=== PATIENT | male | born 1960 | race African-American/Black ===

== ENCOUNTER 2017-12-28 11:15 | Inpatient (IN) | payer OTHER ==
[2017-12-28 12:04] VITALS: BMI 50.5
--- NOTE | 2017-12-28 13:04 | HP ---
CIWA Score - CIWA Score Nausea/Vomitin-Mild Nausea/No Vomiting Muscle Tremors: 4-Moderate,w/Arms Extend Anxiety: 4-Mod. Anxious/Guarded Agitation: 1-Slight > Activity Paroxysmal Sweats: 1-Minimal Palms Moist Orientation: 0-Oriented Tacttile Disturbances: 0-None Auditory Disturbances: 0-None Visual Disturbances: 1-Very Mild Sensitivity Headache: 2-Mild CIWA-Ar Total Score: 14 Admission ROS BHS - HPI Chief Complaint: I'm tired, I don't want to use anymore, I need to get back on track Allergies/Adverse Reactions: Allergies Allergy/AdvReac Type Severity Reaction Status Date / Time No Known Allergies Allergy Verified 08/23/15 15:44 History of Present Illness: 57 yo gentleman here for detox from alcohol - last time here 2014 - sober x 3 years then relapsed. No seizures but does have black outs. Exam Limitations: No Limitations - Ebola screening Have you traveled outside of the country in the last 21 days: No (N) Have you had contact with anyone from an Ebola affected area: No Have you been sick,other than usual withdrawal symptoms: No Do you have a fever: No - Review of Systems Constitutional: Loss of Appetite, Night Sweats, Changes in sleep EENT: reports: No Symptoms Reported Respiratory: reports: No Symptoms reported Cardiac: reports: No Symptoms Reported GI: reports: Poor Appetite, Indigestion, Abdominal cramping : reports: Frequency Musculoskeletal: reports: Back Pain, Muscle Pain Integumentary: reports: No Symptoms Reported Neuro: reports: Tremors Endocrine: reports: No Symptoms Reported Hematology: reports: No Symptoms Reported Psychiatric: reports: Judgement Intact, Mood/Affect Appropiate, Orientated x3, Anxious Other Systems: Reviewed and Negative Patient History - Patient Medical History Hx Anemia: No Hx Asthma: No Hx Chronic Obstructive Pulmonary Disease (COPD): No Hx Cancer: No Hx Cardiac Disorders: No Hx Congestive Heart Failure: No Hx Hypertension: No Hx Hypercholesterolemia: No Hx Pacemaker: No HX Cerebrovascular Accident: No Hx Seizures: No Hx Dementia: No Hx Diabetes: No Hx Gastrointestinal Disorders: No Hx Liver Disease: No Hx Genitourinary Disorders: No Hx Sexually Transmitted Disorders: No Hx Renal Disease (ESRD): No Hx Thyroid Disease: No Hx Human Immunodeficiency Virus (HIV): No Hx Hepatitis C: No Hx Depression: No Hx Suicide Attempt: No Hx Bipolar Disorder: No Hx Schizophrenia: No Other Medical History: arthritis of knees; obesity - Patient Surgical History Past Surgical History: No Hx Neurologic Surgery: No Hx Cataract Extraction: No Hx Cardiac Surgery: No Hx Lung Surgery: No Hx Breast Surgery: No Hx Breast Biopsy: No Hx Abdominal Surgery: No Hx Appendectomy: No Hx Cholecystectomy: No Hx Genitourinary Surgery: No Hx Section: No Hx Orthopedic Surgery: Yes (right knee - arthroscopy march 2017) Anesthesia Reaction: No - PPD History Previous Implant?: Yes Documented Results: Negative w/proof Date: 09/12/17 (done at [facility] - patient brought in proof) Results: 0 mm PPD to be Administered?: No - Reproductive History Patient is a Female of Child Bearing Age (11 -55 yrs old): No (male) - Smoking Cessation Smoking history: Current some day smoker Have you smoked in the past 12 months: Yes Aproximately how many cigarettes per day: 20 Hx Chewing Tobacco Use: No Initiated information on smoking cessation: Yes 'Breaking Loose' booklet given: 12/28/17 (give on floor) - Substance & Tx. History Hx Alcohol Use: Yes Hx Substance Use: Yes Substance Use Type: Alcohol, Cocaine Hx Substance Use Treatment: Yes (detox) - Substances Abused alcohol Route: Oral Frequency: Daily Amount used: 1/5 vodka daily Age of first use: 10 Date of Last Use: 12/28/17 Crack Route: Smoking Frequency: Daily Amount used: 1 gram Age of first use: 24 Date of Last Use: 12/24/17 Family Disease History - Family Disease History Family Disease History: Heart Disease: Grandparent (, etoh), Other: Grandparent, Father (, ? reason), Mother (living, healthy), Daughter ( two - living - healthy) Admission Physical Exam BHS - Vital Signs Vital Signs: Vital Signs - 24 hr 12/28/17 11:50 Temperature 97.2 F L Pulse Rate 96 H Respiratory 20 Rate Blood Pressure 129/77 - Physical General Appearance: Yes: Nourished, Appropriately Dressed, Moderate Distress, Obese, Tremorous, Anxious HEENTM: Yes: EOMI, Hearing grossly Normal, Normocephalic, Normal Voice, Pharynx Normal Respiratory: Yes: Normal Breath Sounds, No Respiratory Distress Neck: Yes: No masses,lesions,Nodules, Supple Breast: Yes: Breast Exam Deferred Cardiology: Yes: Regular Rhythm, Regular Rate Abdominal: Yes: Soft, Protuberent Genitourinary: Yes: Frequency Back: Yes: Normal Inspection Musculoskeletal: Yes: full range of Motion, Gait Steady, Back pain, Muscle Pain Extremities: Yes: Normal Inspection, Non-Tender Neurological: Yes: Fully Oriented, Alert, Motor Strength 5/5, Normal Mood/Affect , Normal Response Integumentary: Yes: Normal Color, Dry, Warm Lymphatic: Yes: Within Normal Limits - Diagnostic (1) Alcohol dependence with withdrawal Current Visit: Yes Status: Chronic Qualifiers: Complication of substance-induced condition: uncomplicated Qualified Code(s ): F10.230 - Alcohol dependence with withdrawal, uncomplicated (2) Cocaine dependence Current Visit: Yes Status: Chronic (3) Nicotine dependence Current Visit: Yes Status: Acute Qualifiers: Nicotine product type: cigarettes Substance use status: uncomplicated Qualified Code(s): F17.210 - Nicotine dependence, cigarettes, uncomplicated (4) Syncope, non cardiac Current Visit: Yes Status: Acute (5) Osteoarthritis of both knees Current Visit: Yes Status: Chronic Qualifiers: Osteoarthritis type: primary Qualified Code(s): M17.0 - Bilateral primary osteoarthritis of knee (6) Obesity, morbid, BMI 50 or higher Current Visit: Yes Status: Chronic Cleared for Admission [facility] - Detox or Rehab [facility] Level of Care: Medically Managed Detox Regimen/Protocol: Librium [facility] Breath Alcohol Content Breath Alcohol Content: 0.077 Urine Drug Screen - Results Drug Screen Negative: No Urine Drug Screen Results: STEVIE-Cocaine
[2017-12-28] MEDS ORDERED: ACETAMINOPHEN 325 MG TABLET (FP) PO PRN (13:16)
[2017-12-28] MEDS ORDERED: MAGNESIUM HYDROX 2400MG/30ML ORAL SUSPENSION 30 ML CUP PO PRN (13:16)
[2017-12-28] MEDS ORDERED: MAGNESIUM CITRATE 300 ML BOTTLE PO PRN (13:16)
[2017-12-28] MEDS ORDERED: P-EPHED 60MG/TRIPROLIDI 2.5MG TABLET PO PRN (13:16)
[2017-12-28] MEDS ORDERED: chlordiazePOXIDE HCL 25 MG CAPSULE PO PRN (13:16)
[2017-12-28] MEDS ORDERED: hydrOXYzine PAMOATE 25 MG CAPSULE (FP) PO PRN (13:16)
[2017-12-28] MEDS ORDERED: guaiFENesin/D-METHORPHAN HB 10 ML UNIT-DOSE CUPS PO PRN (13:16)
[2017-12-28] MEDS ORDERED: MAG HYDROX/AL HYDROX/SIMETH 30 ML UNIT-DOSE CUP PO PRN (13:16)
[2017-12-28] MEDS ORDERED: LOPERAMIDE HCL 2 MG CAPSULE PO PRN (13:16)
[2017-12-28] MEDS ORDERED: MENTHOL/PHENOL 1 EACH UD MM PRN (13:16)
[2017-12-28] MEDS ORDERED: chlordiazePOXIDE HCL 25 MG CAPSULE PO ONE (14:45)
[2017-12-28] MEDS: IBUPROFEN 600 MG TABLET (FP) PO PRN (15:57)
[2017-12-28] MEDS: chlordiazePOXIDE HCL 25 MG CAPSULE PO SCH ×2 (17:39→22:19)
[2017-12-28 18:25] LABS: URINE APPEARANCE TURBID; URINE BILIRUBIN NEGATIVE (NEGATIVE); URINE BLOOD NEGATIVE (NEGATIVE); URINE COLOR YELLOW; URINE GLUCOSE (UA) NEGATIVE (NEGATIVE); URINE KETONE NEGATIVE (NEGATIVE); URINE NITRITE NEGATIVE (NEGATIVE); URINE UROBILINOGEN 4.0 E.U/dl mg/dL (0.2-1.0)
[2017-12-28 18:34] LABS: URINE LEUK ESTERASE 1+ (NEGATIVE); URINE PROTEIN 1+ (NEGATIVE)
[2017-12-28 18:37] LABS: URINE BACTERIA MANY /hpf (NONE SEEN); URINE MUCUS RARE
[2017-12-28 18:39] LABS: AMORP URATES MANY /hpf (NONE SEEN)
[2017-12-28] MEDS: METHYL SALICYLATE/MENTHOL OINT 30 GM TUBE TP SCH (22:20)
[2017-12-28] MEDS: THIAMINE HCL 100 MG TABLET (FP) PO SCH (22:22)
[2017-12-29] MEDS: chlordiazePOXIDE HCL 25 MG CAPSULE PO SCH ×4 (05:09→23:22)
--- NOTE | 2017-12-29 08:39 | EKG ---
Test Reason : Blood Pressure : / mmHG Vent. Rate : 086 BPM Atrial Rate : 086 BPM P-R Int : 162 ms QRS Dur : 088 ms QT Int : 404 ms P-R-T Axes : 051 003 059 degrees QTc Int : 483 ms NORMAL SINUS RHYTHM INFERIOR INFARCT , AGE UNDETERMINED CANNOT RULE OUT ANTERIOR INFARCT , AGE UNDETERMINED ABNORMAL ECG NO PREVIOUS ECGS AVAILABLE Confirmed by NIK ANN MD ([id number]) on 12/29/2017 8:38:57 AM Referred By: Confirmed By:NIK ANN MD
--- NOTE | 2017-12-29 09:59 | PN ---
S CIWA - CIWA Score Nausea/Vomitin-Mild Nausea/No Vomiting Muscle Tremors: 4-Moderate,w/Arms Extend Anxiety: 3 Agitation: 3 Paroxysmal Sweats: 1-Minimal Palms Moist Orientation: 0-Oriented Tacttile Disturbances: 0-None Auditory Disturbances: 0-None Visual Disturbances: 0-None Headache: 0-None Present CIWA-Ar Total Score: 12 BHS Progress Note (SOAP) Subjective: sweat tremor anxiety mild nausea able to tolerate food and fluid Objective: 12/29/17 09:56 Vital Signs Temperature 97.9 F 12/29/17 06:00 Pulse Rate 80 12/29/17 06:00 Respiratory Rate 20 12/29/17 06:00 Blood Pressure 133/80 12/29/17 06:00 O2 Sat by Pulse Oximetry (%) Laboratory Last Values Urine Color Yellow 12/28/17 15:31 Urine Appearance Turbid 12/28/17 15:31 Urine pH 5.0 (5.0-8.0) 12/28/17 15:31 Ur Specific [place] 1.028 (1.001-1.035) 12/28/17 15:31 Urine Protein 1+ (NEGATIVE) H 12/28/17 15:31 Urine Glucose (UA) Negative (NEGATIVE) 12/28/17 15:31 Urine Ketones Negative (NEGATIVE) 12/28/17 15:31 Urine Blood Negative (NEGATIVE) 12/28/17 15:31 Urine Nitrite Negative (NEGATIVE) 12/28/17 15:31 Urine Bilirubin Negative (NEGATIVE) 12/28/17 15:31 Urine Urobilinogen 4.0 e.u/dl mg/dL (0.2-1.0) 12/28/17 15:31 Ur Leukocyte Esterase 1+ (NEGATIVE) H 12/28/17 15:31 Urine WBC (Auto) 52 /hpf (3-5) 12/28/17 15:31 Urine RBC (Auto) None /hpf (0-3) 12/28/17 15:31 Amorphous Urates Many /hpf (NONE SEEN) 12/28/17 15:31 Urine Bacteria Many /hpf (NONE SEEN) 12/28/17 15:31 Urine Mucus Rare 12/28/17 15:31 lab noted repeat ua Assessment: 12/29/17 09:59 withdrawal sx Plan: continue detox increase oral fluid
[2017-12-29 10:12] LABS: HEMATOCRIT 43.2 % (35.4-49); MCH 30.9 pg (25.7-33.7); MCHC 32.4 g/dl (32.0-35.9); MEAN CELL VOLUME 95.3 fl (80-96); PLATELET COUNT 231 K/MM3 (134-434); RBC 4.54 M/mm3 (4.00-5.60); RDW 15.1 % (11.9-15.9); WHITE BLOOD COUNT 9.4 K/mm3 (4.0-10.0)
[2017-12-29] MEDS: PRENATAL VITAMINS W/ FOLIC ACID TABLET (FP) PO SCH (10:21)
[2017-12-29] MEDS: METHYL SALICYLATE/MENTHOL OINT 30 GM TUBE TP SCH ×2 (10:22→23:21)
[2017-12-29] MEDS: IBUPROFEN 600 MG TABLET (FP) PO PRN ×2 (10:23→22:03)
[2017-12-29 10:27] LABS: CHLORIDE 108 mmol/L (98-107); POTASSIUM 3.9 mmol/L (3.5-5.1); SODIUM 141 mmol/L (136-145)
[2017-12-29 10:37] LABS: ALBUMIN 3.2 g/dl (3.4-5.0); ALK PHOS 122 U/L (45-117); ANION GAP 6 (8-16); BILIRUBIN,TOTAL 0.6 mg/dL (0.2-1.0); BLOOD UREA NITROGEN 12 mg/dL (7-18); CALCIUM 8.1 mg/dL (8.5-10.1); CO2 27 mmol/L (21-32); GLUCOSE,RANDOM 99 mg/dL (74-106); SGOT/AST 11 U/L (15-37); SGPT/ALT 21 U/L (12-78); TOT PROT 6.9 g/dl (6.4-8.2)
[2017-12-29] MEDS: THIAMINE HCL 100 MG TABLET (FP) PO SCH (23:22)
[2017-12-30] MEDS: chlordiazePOXIDE HCL 25 MG CAPSULE PO SCH ×2 (05:40→10:07)
[2017-12-30] MEDS: PRENATAL VITAMINS W/ FOLIC ACID TABLET (FP) PO SCH (10:06)
[2017-12-30] MEDS: METHYL SALICYLATE/MENTHOL OINT 30 GM TUBE TP SCH ×2 (10:06→22:08)
[2017-12-30] MEDS: IBUPROFEN 600 MG TABLET (FP) PO PRN (10:08)
[2017-12-30 10:10] LABS: URINE APPEARANCE CLEAR; URINE BILIRUBIN NEGATIVE (NEGATIVE); URINE BLOOD NEGATIVE (NEGATIVE); URINE COLOR LTYELLOW; URINE GLUCOSE (UA) NEGATIVE (NEGATIVE); URINE KETONE NEGATIVE (NEGATIVE); URINE LEUK ESTERASE TRACE (NEGATIVE); URINE NITRITE NEGATIVE (NEGATIVE); URINE PROTEIN NEGATIVE (NEGATIVE)
--- NOTE | 2017-12-30 10:12 | PN ---
S CIWA - CIWA Score Nausea/Vomitin Muscle Tremors: 3 Anxiety: 3 Agitation: 2 Paroxysmal Sweats: 1-Minimal Palms Moist Orientation: 0-Oriented Tacttile Disturbances: 1-Very Mild Itch/Numbness Auditory Disturbances: 1-Very Mild Visual Disturbances: 0-None Headache: 2-Mild CIWA-Ar Total Score: 16 BHS Progress Note (SOAP) Subjective: ALERT,IRRITABLE,ANXIOUS,INTERRUPTED SLEEP,TREMOR,CONTACT DERMATITIS FACE Objective: 12/30/17 10:08 Vital Signs Temperature 97.7 F 12/30/17 06:12 Pulse Rate 76 12/30/17 06:12 Respiratory Rate 18 12/30/17 06:12 Blood Pressure 124/79 12/30/17 06:12 O2 Sat by Pulse Oximetry (%) EKG NSR NO CHEST PAIN,NO SOB,NO DIZZINESS Laboratory Last Values WBC 9.4 K/mm3 (4.0-10.0) 12/29/17 08:00 RBC 4.54 M/mm3 (4.00-5.60) 12/29/17 08:00 Hgb 14.0 GM/dL (11.7-16.9) 12/29/17 08:00 Hct 43.2 % (35.4-49) 12/29/17 08:00 MCV 95.3 fl (80-96) 12/29/17 08:00 MCH 30.9 pg (25.7-33.7) 12/29/17 08:00 MCHC 32.4 g/dl (32.0-35.9) 12/29/17 08:00 RDW 15.1 % (11.9-15.9) 12/29/17 08:00 Plt Count 231 K/MM3 (134-434) 12/29/17 08:00 MPV 9.0 fl (7.5-11.1) 12/29/17 08:00 Sodium 141 mmol/L (136-145) 12/29/17 08:00 Potassium 3.9 mmol/L (3.5-5.1) 12/29/17 08:00 Chloride 108 mmol/L (98-107) H 12/29/17 08:00 Carbon Dioxide 27 mmol/L (21-32) 12/29/17 08:00 Anion Gap 6 (8-16) L 12/29/17 08:00 BUN 12 mg/dL (7-18) D 12/29/17 08:00 Creatinine 1.0 mg/dL (0.7-1.3) 12/29/17 08:00 Creat Clearance w eGFR > 60 (>60) 12/29/17 08:00 Random Glucose 99 mg/dL (74-106) 12/29/17 08:00 Calcium 8.1 mg/dL (8.5-10.1) L 12/29/17 08:00 Total Bilirubin 0.6 mg/dL (0.2-1.0) D 12/29/17 08:00 AST 11 U/L (15-37) L D 12/29/17 08:00 ALT 21 U/L (12-78) D 12/29/17 08:00 Alkaline Phosphatase 122 U/L (45-117) H 12/29/17 08:00 Total Protein 6.9 g/dl (6.4-8.2) 12/29/17 08:00 Albumin 3.2 g/dl (3.4-5.0) L 12/29/17 08:00 Urine Color Yellow 12/28/17 15:31 Urine Appearance Turbid 12/28/17 15: Urine pH 5.0 (5.0-8.0) 12/28/17 15:31 Ur Specific [place] 1.028 (1.001-1.035) 12/28/17 15:31 Urine Protein 1+ (NEGATIVE) H 12/28/17 15:31 Urine Glucose (UA) Negative (NEGATIVE) 12/28/17 15:31 Urine Ketones Negative (NEGATIVE) 12/28/17 15: Urine Blood Negative (NEGATIVE) 12/28/17 15: Urine Nitrite Negative (NEGATIVE) 12/28/17 15:31 Urine Bilirubin Negative (NEGATIVE) 12/28/17 15: Urine Urobilinogen 4.0 e.u/dl mg/dL (0.2-1.0) 12/28/17 15:31 Ur Leukocyte Esterase 1+ (NEGATIVE) H 12/28/17 15:31 Urine WBC (Auto) 52 /hpf (3-5) 12/28/17 15:31 Urine RBC (Auto) None /hpf (0-3) 12/28/17 15:31 Amorphous Urates Many /hpf (NONE SEEN) 12/28/17 15:31 Urine Bacteria Many /hpf (NONE SEEN) 12/28/17 15:31 Urine Mucus Rare 12/28/17 15:31 RPR Titer Nonreactive (NONREACTIVE) 12/29/17 08:00 Assessment: 12/30/17 10:10 WITHDRAWAL SYMPTOM Plan: CONTINUE DETOX ,REPEAT UA PENDING,ENCOURAGE ORAL FLUID
[2017-12-30 10:16] LABS: URINE MUCUS RARE
[2017-12-30] MEDS: HYDROCORTISONE 0.5% TOPICAL CREAM 30 GM TUBE TP SCH ×2 (11:22→22:06)
[2017-12-30] MEDS: chlordiazePOXIDE 5 MG CAPSULE PO SCH ×2 (17:48→22:07)
[2017-12-30] MEDS: THIAMINE HCL 100 MG TABLET (FP) PO SCH (22:08)
[2017-12-31] MEDS: chlordiazePOXIDE 5 MG CAPSULE PO SCH ×2 (06:27→10:22)
--- NOTE | 2017-12-31 09:10 | PN ---
BHS Progress Note (SOAP) Subjective: alert,irritable,anxious,interrupted sleep Objective: 12/31/17 09:08 Vital Signs Temperature 98.2 F 12/31/17 06:12 Pulse Rate 76 12/31/17 06:12 Respiratory Rate 20 12/31/17 06:12 Blood Pressure 123/74 12/31/17 06:12 O2 Sat by Pulse Oximetry (%) 12/31/17 09:09 Laboratory Results - last 24 hr 12/30/17 07:00 Urine Color Ltyellow Urine Appearance Clear Urine pH 6.0 Ur Specific [place] 1.017 Urine Protein Negative Urine Glucose (UA) Negative Urine Ketones Negative Urine Blood Negative Urine Nitrite Negative Urine Bilirubin Negative Urine Urobilinogen 2.0 Ur Leukocyte Esterase Trace Urine WBC (Auto) 3 Urine RBC (Auto) <1 Urine Mucus Rare Assessment: 12/31/17 09:10 withdrawal symptom Plan: continue detox,discharge in am
[2017-12-31] MEDS: PRENATAL VITAMINS W/ FOLIC ACID TABLET (FP) PO SCH (10:22)
[2017-12-31] MEDS: IBUPROFEN 600 MG TABLET (FP) PO PRN ×2 (10:23→22:06)
[2017-12-31] MEDS: HYDROCORTISONE 0.5% TOPICAL CREAM 30 GM TUBE TP SCH ×2 (10:25→22:43)
[2017-12-31] MEDS: METHYL SALICYLATE/MENTHOL OINT 30 GM TUBE TP SCH ×2 (10:25→22:43)
[2017-12-31] MEDS: chlordiazePOXIDE HCL 10 MG CAPSULE PO SCH ×3 (18:08→22:44)
[2017-12-31] MEDS: THIAMINE HCL 100 MG TABLET (FP) PO SCH (22:43)
[2018-01-01] MEDS: chlordiazePOXIDE HCL 10 MG CAPSULE PO SCH (05:52)
[2018-01-01] MEDS: IBUPROFEN 600 MG TABLET (FP) PO PRN (05:53)
--- NOTE | 2018-01-01 08:09 | DS ---
[facility] Detox Discharge Summary Admission Date: 12/28/17 Discharge Date: 01/01/18 - History Present History: Alcohol Dependence, Cocaine Dependence Pertinent Past History: NICOTINE DEPENDENCE SYNCOPE ALCOHOL RELATED OSTEOARTHRITIS BOTH KNEES OBESITY - Physical Exam Results Vital Signs: Vital Signs Temperature 97.9 F 01/01/18 06:45 Pulse Rate 73 01/01/18 06:45 Respiratory Rate 20 01/01/18 06:45 Blood Pressure 120/73 01/01/18 06:45 O2 Sat by Pulse Oximetry (%) Pertinent Admission Physical Exam Findings: WITHDRAWAL SINGS AND SYMPTOM - Treatment Hospital Course: Detox Protocol Followed, Detoxed Safely, Responded well, Discharged Condition Good, Rehab Referral Accepted Patient has Accepted a Rehab Referral to: [facility] - Medication Discharge Medications: Ambulatory Orders Ibuprofen [Motrin -] 600 mg PO TID PRN 12/28/17 - Diagnosis (1) Alcohol dependence with withdrawal Current Visit: Yes Status: Chronic Qualifiers: Complication of substance-induced condition: uncomplicated Qualified Code(s ): F10.230 - Alcohol dependence with withdrawal, uncomplicated (2) Nicotine dependence Current Visit: Yes Status: Acute Qualifiers: Nicotine product type: cigarettes Substance use status: uncomplicated Qualified Code(s): F17.210 - Nicotine dependence, cigarettes, uncomplicated (3) Syncope, non cardiac Current Visit: Yes Status: Acute (4) Cocaine dependence Current Visit: Yes Status: Chronic (5) Obesity, morbid, BMI 50 or higher Current Visit: Yes Status: Chronic (6) Osteoarthritis of both knees Current Visit: Yes Status: Chronic Qualifiers: Osteoarthritis type: primary Qualified Code(s): M17.0 - Bilateral primary osteoarthritis of knee - AMA Did Patient Leave Against Medical Advice: No
[2018-01-01] MEDS: METHYL SALICYLATE/MENTHOL OINT 30 GM TUBE TP SCH (10:10)
[2018-01-01] MEDS: HYDROCORTISONE 0.5% TOPICAL CREAM 30 GM TUBE TP SCH (10:10)
[2018-01-01] MEDS: PRENATAL VITAMINS W/ FOLIC ACID TABLET (FP) PO SCH (10:11)
[2018-01-01 10:16] VITALS: BP 129/71; PULSE 83; TEMP 97.5
== END 2018-01-01 10:51 | disposition home or self-care (01) | DRG 774 ==
LOC: YASAS 11:15 → Y6N 14:42
PROVIDERS: ADMIT Internal Medicine; ATTEND Internal Medicine
PROC: HZ2ZZZZ Detoxification Services for Substance Abuse Treatment (ICD-10-PCS; principal; 2017-12-28)
DX: F10.230 Alcohol dependence with withdrawal, uncomplicated (principal); F14.20 Cocaine dependence, uncomplicated; F17.210 Nicotine dependence, cigarettes, uncomplicated; R55 Syncope and collapse; M17.0 Bilateral primary osteoarthritis of knee; E66.01 Morbid (severe) obesity due to excess calories; Z68.43 Body mass index [BMI] 50.0-59.9, adult
CPT/HCPCS: 36415; 80053; 81003; 81015; 85027; 86593; 93005; 93010

== ENCOUNTER 2018-11-21 10:45 | Inpatient (IN) | payer OTHER ==
[2018-11-21 11:44] VITALS: BMI 49.0
--- NOTE | 2018-11-21 12:37 | HP ---
CIWA Score Nausea/Vomitin Muscle Tremors: None Anxiety: 3 Agitation: 1-Slight > Activity Paroxysmal Sweats: 3 Orientation: 0-Oriented Tacttile Disturbances: 0-None Auditory Disturbances: 0-None Visual Disturbances: 3-Moderate Sensitivity Headache: 4-Moderately Severe CIWA-Ar Total Score: 16 - Admission Criteria [facility] Guidelines: Admission for Medically Managed Detox: Requires at least one of the followin. CIWA greater than 12 2. Seizures within the past 24 hours 3. Delirium tremens within the past 24 hours 4. Hallucinations within the past 24 hours 5. Acute intervention needed for co occurring medical disorder 6. Acute intervention needed for co occurring psychiatric disorder 7. Severe withdrawal that cannot be handled at a lower level of care (continued vomiting, continued diarrhea, abnormal vital signs) requiring intravenous medication and/or fluids 8. Patient presents the following: CIWA greater than 12 Admission Criteria Met: Admission criteria met Admission ROS S - HPI Allergies/Adverse Reactions: Allergies Allergy/AdvReac Type Severity Reaction Status Date / Time No Known Allergies Allergy Verified 11/21/18 11:49 History of Present Illness: patient here requesting detox from etoh use reports 1/5 /day or more since 3 mo ago , prior sobriety x 6 months , first age of use 10 , detox x several, most recently 1yr ago . Latest use this morning , currently intoxicated , navi 0.101 . Denies seizures , + blackouts, denies falls while intoxicated, starts drinking " whenever I wake up , reports symptoms as above , tremors if not drinking . Denies driving . utox + kristine cocaine : 1/2 gr /day denies IVDU since age 24 intermittently tobacco : with ETOh use . PMhx : right knee surgery for quad tear , surgery 2 years ago PShx : as above psych ; denies shx : lives w/ family . denies legal issues . Exam Limitations: Intoxication - Ebola screening Have you traveled outside of the country in the last 21 days: No Have you had contact with anyone from an Ebola affected area: No Have you been sick,other than usual withdrawal symptoms: No Do you have a fever: No - Review of Systems Constitutional: See HPI EENT: reports: Other (denies vision problems) Respiratory: reports: No Symptoms reported Cardiac: reports: No Symptoms Reported GI: reports: See HPI : reports: No Symptoms Reported Musculoskeletal: reports: Joint Pain Integumentary: reports: No Symptoms Reported Neuro: reports: Headache Endocrine: reports: No Symptoms Reported Psychiatric: reports: Orientated x3 Patient History - Patient Medical History Hx Anemia: No Hx Asthma: No Hx Chronic Obstructive Pulmonary Disease (COPD): No Hx Cancer: No Hx Cardiac Disorders: No Hx Congestive Heart Failure: No Hx Hypertension: No Hx Hypercholesterolemia: No Hx Pacemaker: No HX Cerebrovascular Accident: No Hx Seizures: No Hx Dementia: No Hx Diabetes: No Hx Gastrointestinal Disorders: No Hx Liver Disease: No Hx Genitourinary Disorders: No Hx Sexually Transmitted Disorders: No Hx Renal Disease (ESRD): No Hx Thyroid Disease: No Hx Human Immunodeficiency Virus (HIV): No Hx Hepatitis C: No Hx Depression: No Hx Suicide Attempt: No Hx Bipolar Disorder: No Hx Schizophrenia: No - Patient Surgical History Past Surgical History: No Hx Neurologic Surgery: No Hx Cataract Extraction: No Hx Cardiac Surgery: No Hx Lung Surgery: No Hx Breast Surgery: No Hx Breast Biopsy: No Hx Abdominal Surgery: No Hx Appendectomy: No Hx Cholecystectomy: No Hx Genitourinary Surgery: No Hx Section: No Hx Orthopedic Surgery: Yes (right knee - arthroscopy march 2017) Anesthesia Reaction: No - PPD History Previous Implant?: Yes Date: 09/12/17 Results: 0 mm - Smoking Cessation Smoking history: Current some day smoker Have you smoked in the past 12 months: Yes Aproximately how many cigarettes per day: 20 Cigars Per Day: 0 Hx Chewing Tobacco Use: No Initiated information on smoking cessation: No - Substances Abused Alcohol Route: Oral Frequency: Daily Amount used: 1.5 liters of vodka Age of first use: 10 Date of Last Use: 11/21/18 Cocaine Route: Inhalation Frequency: 1-2 times per week Amount used: 0.5-1 gram Age of first use: 24 Date of Last Use: 11/20/18 Family Disease History - Family Disease History Family Disease History: Heart Disease: Grandparent (, etoh), Other: Grandparent, Father (, ? reason), Mother (living, healthy), Daughter ( two - living - healthy) Admission Physical Exam BHS - Vital Signs Vital Signs: Vital Signs - 24 hr 11/21/18 11:41 Temperature 97.2 F L Pulse Rate 93 H Respiratory 20 Rate Blood Pressure 122/96 - Physical General Appearance: Yes: Mild Distress, Alcohol on Breath, Intoxicated HEENTM: Yes: EOMI, Normocephalic, Normal Voice Respiratory: Yes: Chest Non-Tender, Lungs Clear, Normal Breath Sounds Neck: Yes: No masses,lesions,Nodules, Trachea in good position Breast: Yes: Breast Exam Deferred Cardiology: Yes: Regular Rhythm, Regular Rate, S1, S2, Tachycardia Abdominal: Yes: Normal Bowel Sounds, Protuberent Genitourinary: Yes: Hesitency (states saw urology and had prostate exam) Back: Yes: Normal Inspection Musculoskeletal: Yes: Joint Stiffness Extremities: Yes: Normal Capillary Refill, Normal Inspection, Non-Tender Neurological: Yes: Motor Strength 5/5, Normal Mood/Affect Integumentary: Yes: Normal Color, Dry, Warm - Diagnostic (1) Alcohol intoxication Current Visit: Yes Status: Acute Qualifiers: Complication of substance-induced condition: uncomplicated Qualified Code(s ): F10.920 - Alcohol use, unspecified with intoxication, uncomplicated (2) Cocaine dependence Current Visit: No Status: Chronic BHS Breath Alcohol Content Breath Alcohol Content: 0.101 Urine Drug Screen - Results Drug Screen Negative: No Urine Drug Screen Results: KRISTINE-Cocaine
[2018-11-21] MEDS ORDERED: guaiFENesin/D-METHORPHAN HB 10 ML UNIT-DOSE CUPS PO PRN (12:43)
[2018-11-21] MEDS ORDERED: MAGNESIUM HYDROX 2400MG/30ML ORAL SUSPENSION 30 ML CUP PO PRN (12:43)
[2018-11-21] MEDS ORDERED: P-EPHED 60MG/TRIPROLIDI 2.5MG TABLET PO PRN (12:43)
[2018-11-21] MEDS ORDERED: diazePAM 5 MG TABLET PO PRN (12:43)
[2018-11-21] MEDS ORDERED: MAGNESIUM CITRATE 300 ML BOTTLE PO PRN (12:43)
[2018-11-21] MEDS ORDERED: IBUPROFEN 400 MG TABLET (FP) PO PRN (12:43)
[2018-11-21] MEDS ORDERED: MENTHOL/PHENOL 1 EACH UD MM PRN (12:43)
[2018-11-21] MEDS ORDERED: MAG HYDROX/AL HYDROX/SIMETH 30 ML UNIT-DOSE CUP PO PRN (12:43)
[2018-11-21] MEDS: diazePAM 5 MG TABLET PO SCH ×2 (14:58→22:28)
[2018-11-21] MEDS ORDERED: MELATONIN 5 MG TABLETS PO PRN (22:00)
[2018-11-21] MEDS: THIAMINE HCL 100 MG TABLET (FP) PO SCH (22:28)
[2018-11-22] MEDS: diazePAM 5 MG TABLET PO SCH ×3 (06:29→22:13)
[2018-11-22 10:16] LABS: HEMATOCRIT 49.6 % (35.4-49); HEMOGLOBIN 15.7 GM/dL (11.7-16.9); MCH 31.3 pg (25.7-33.7); MCHC 31.7 g/dl (32.0-35.9); MEAN CELL VOLUME 98.6 fl (80-96); MEAN PLT VOLUME 9.8 fl (7.5-11.1); PLATELET COUNT 274 K/MM3 (134-434); RBC 5.03 M/mm3 (4.00-5.60); RDW 15.6 % (11.9-15.9); WHITE BLOOD COUNT 14.4 K/mm3 (4.0-10.0)
[2018-11-22] MEDS: ACETAMINOPHEN 325 MG TABLET (FP) PO PRN (10:26)
[2018-11-22] MEDS: PRENATAL VITAMINS W/ FOLIC ACID TABLET (FP) PO SCH (10:28)
[2018-11-22 10:46] LABS: ALBUMIN 3.5 g/dl (3.4-5.0); ALK PHOS 147 U/L (45-117); ANION GAP 13 MMOL/L (8-16); BILIRUBIN,TOTAL 0.4 mg/dL (0.2-1); BLOOD UREA NITROGEN 9 mg/dL (7-18); CALCIUM 8.4 mg/dL (8.5-10.1); CHLORIDE 104 mmol/L (98-107); CO2 21 mmol/L (21-32); CREATININE 1.1 mg/dL (0.55-1.3); GLUCOSE,RANDOM 101 mg/dL (74-106); POTASSIUM 3.7 mmol/L (3.5-5.1); SGOT/AST 21 U/L (15-37); SGPT/ALT 25 U/L (13-61); SODIUM 138 mmol/L (136-145); TOT PROT 7.7 g/dl (6.4-8.2)
--- NOTE | 2018-11-22 14:07 | PN ---
S CIWA - CIWA Score Nausea/Vomitin-No Nausea/No Vomiting Muscle Tremors: 5 Anxiety: 4-Mod. Anxious/Guarded Agitation: 3 Paroxysmal Sweats: 1-Minimal Palms Moist Orientation: 0-Oriented Tacttile Disturbances: 0-None Auditory Disturbances: 0-None Visual Disturbances: 0-None Headache: 0-None Present CIWA-Ar Total Score: 13 BHS Progress Note (SOAP) Subjective: ANXIETY, TREMORS, SWEATS,FATIGUE. Objective: 11/22/18 14:06 Vital Signs 11/22/18 11/22/18 06:19 10:30 Temperature 97.8 F 97.2 F L Pulse Rate 75 89 Respiratory 20 16 Rate Blood Pressure 125/78 153/86 Laboratory Tests 11/22/18 11/22/18 11/22/18 05:50 05:50 05:50 WBC 14.4 H RBC 5.03 Hgb 15.7 Hct 49.6 H MCV 98.6 H MCH 31.3 MCHC 31.7 L RDW 15.6 Plt Count 274 MPV 9.8 Sodium 138 Potassium 3.7 Chloride 104 Carbon Dioxide 21 Anion Gap 13 BUN 9 Creatinine 1.1 Creat Clearance w eGFR > 60 Random Glucose 101 Calcium 8.4 L Total Bilirubin 0.4 AST 21 ALT 25 Alkaline Phosphatase 147 H Total Protein 7.7 Albumin 3.5 RPR Titer Nonreactive Assessment: 11/22/18 14:06 WITHDRAWAL SX Plan: CONTINUE DETOX
[2018-11-22] MEDS: THIAMINE HCL 100 MG TABLET (FP) PO SCH (22:13)
[2018-11-23] MEDS: PRENATAL VITAMINS W/ FOLIC ACID TABLET (FP) PO SCH (10:44)
[2018-11-23] MEDS: diazePAM 5 MG TABLET PO SCH ×2 (10:44→22:18)
[2018-11-23] MEDS: ACETAMINOPHEN 325 MG TABLET (FP) PO PRN ×2 (10:46→22:20)
--- NOTE | 2018-11-23 16:18 | PN ---
S CIWA - CIWA Score Nausea/Vomitin Muscle Tremors: 4-Moderate,w/Arms Extend Anxiety: 4-Mod. Anxious/Guarded Agitation: 4-Moderately Restless Paroxysmal Sweats: 3 Orientation: 0-Oriented Tacttile Disturbances: 0-None Auditory Disturbances: 0-None Visual Disturbances: 0-None Headache: 0-None Present CIWA-Ar Total Score: 17 BHS Progress Note (SOAP) Subjective: Lightheaded, nausea, diarrhea, interrupted sleep Objective: 11/23/18 16:16 Last Vital Signs Temp Pulse Resp BP Pulse Ox 98.7 F 89 20 116/69 11/23/18 15:14 11/23/18 15:14 11/23/18 15:14 11/23/18 15:14 Laboratory Tests 11/22/18 11/22/18 11/22/18 05:50 05:50 05:50 WBC 14.4 H RBC 5.03 Hgb 15.7 Hct 49.6 H MCV 98.6 H MCH 31.3 MCHC 31.7 L RDW 15.6 Plt Count 274 MPV 9.8 Sodium 138 Potassium 3.7 Chloride 104 Carbon Dioxide 21 Anion Gap 13 BUN 9 Creatinine 1.1 Creat Clearance w eGFR > 60 Random Glucose 101 Calcium 8.4 L Total Bilirubin 0.4 AST 21 ALT 25 Alkaline Phosphatase 147 H Total Protein 7.7 Albumin 3.5 RPR Titer Nonreactive Labs reviewed: wbc 14.4 Assessment: 11/23/18 16:17 Withdrawal symptoms Noted with leukocytosis Plan: Continue detox Encouraged PO water intake Leukocytosis: asymptomatic, repeat CBC
[2018-11-23] MEDS: THIAMINE HCL 100 MG TABLET (FP) PO SCH (22:18)
--- NOTE | 2018-11-24 09:10 | PN ---
BHS Progress Note (SOAP) Subjective: feeling better less tremor mild sweat otherwise feeling ok Objective: 11/24/18 11:34 Vital Signs Temperature 97.5 F L 11/24/18 09:21 Pulse Rate 83 11/24/18 09:21 Respiratory Rate 18 11/24/18 09:21 Blood Pressure 139/86 11/24/18 09:21 O2 Sat by Pulse Oximetry (%) Laboratory Last Values WBC 14.4 K/mm3 (4.0-10.0) H 11/22/18 05:50 RBC 5.03 M/mm3 (4.00-5.60) 11/22/18 05:50 Hgb 15.7 GM/dL (11.7-16.9) 11/22/18 05:50 Hct 49.6 % (35.4-49) H 11/22/18 05:50 MCV 98.6 fl (80-96) H 11/22/18 05:50 MCH 31.3 pg (25.7-33.7) 11/22/18 05:50 MCHC 31.7 g/dl (32.0-35.9) L 11/22/18 05:50 RDW 15.6 % (11.9-15.9) 11/22/18 05:50 Plt Count 274 K/MM3 (134-434) 11/22/18 05:50 MPV 9.8 fl (7.5-11.1) 11/22/18 05:50 Sodium 138 mmol/L (136-145) 11/22/18 05:50 Potassium 3.7 mmol/L (3.5-5.1) 11/22/18 05:50 Chloride 104 mmol/L (98-107) 11/22/18 05:50 Carbon Dioxide 21 mmol/L (21-32) 11/22/18 05:50 Anion Gap 13 MMOL/L (8-16) 11/22/18 05:50 BUN 9 mg/dL (7-18) 11/22/18 05:50 Creatinine 1.1 mg/dL (0.55-1.3) 11/22/18 05:50 Creat Clearance w eGFR > 60 (>60) 11/22/18 05:50 Random Glucose 101 mg/dL (74-106) 11/22/18 05:50 Calcium 8.4 mg/dL (8.5-10.1) L 11/22/18 05:50 Total Bilirubin 0.4 mg/dL (0.2-1) 11/22/18 05:50 AST 21 U/L (15-37) 11/22/18 05:50 ALT 25 U/L (13-61) 11/22/18 05:50 Alkaline Phosphatase 147 U/L (45-117) H 11/22/18 05:50 Total Protein 7.7 g/dl (6.4-8.2) 11/22/18 05:50 Albumin 3.5 g/dl (3.4-5.0) 11/22/18 05:50 RPR Titer Nonreactive (NONREACTIVE) 11/22/18 05:50 lab noted Assessment: 11/24/18 11:34 mild withdrawal sx 11/24/18 11:34 Plan: continue detox
[2018-11-24] MEDS: diazePAM 5 MG TABLET PO SCH ×2 (10:18→23:14)
[2018-11-24] MEDS: PRENATAL VITAMINS W/ FOLIC ACID TABLET (FP) PO SCH (11:24)
[2018-11-24] MEDS ORDERED: ACETAMINOPHEN 325 MG TABLET (FP) PO PRN (17:04)
[2018-11-24] MEDS: THIAMINE HCL 100 MG TABLET (FP) PO SCH (23:14)
[2018-11-25 06:27] VITALS: PULSE 72
[2018-11-25 09:18] VITALS: BP 146/72; TEMP 97.9
[2018-11-25] MEDS: PRENATAL VITAMINS W/ FOLIC ACID TABLET (FP) PO SCH (09:55)
[2018-11-25] MEDS ORDERED: diazePAM 5 MG TABLET PO SCH (10:00)
--- NOTE | 2018-11-25 12:44 | DS ---
[facility] Detox Discharge Summary Admission Date: 11/21/18 Discharge Date: 11/25/18 - History Present History: Alcohol Dependence Additional Comments: 58 years old male admitted on 11/21/18 for alcohol withdrawal stabilization completed detox regime [facility] patient preferred [facility] - Physical Exam Results Vital Signs: Vital Signs Temperature 97.9 F 11/25/18 09:18 Pulse Rate 72 11/25/18 09:18 Respiratory Rate 18 11/25/18 09:18 Blood Pressure 146/72 11/25/18 09:18 O2 Sat by Pulse Oximetry (%) Pertinent Admission Physical Exam Findings: alcohol withdrawal sx Vital Signs Temperature 97.9 F 11/25/18 09:18 Pulse Rate 72 11/25/18 09:18 Respiratory Rate 18 11/25/18 09:18 Blood Pressure 146/72 11/25/18 09:18 O2 Sat by Pulse Oximetry (%) Laboratory Last Values WBC 14.4 K/mm3 (4.0-10.0) H 11/22/18 05:50 RBC 5.03 M/mm3 (4.00-5.60) 11/22/18 05:50 Hgb 15.7 GM/dL (11.7-16.9) 11/22/18 05:50 Hct 49.6 % (35.4-49) H 11/22/18 05:50 MCV 98.6 fl (80-96) H 11/22/18 05:50 MCH 31.3 pg (25.7-33.7) 11/22/18 05:50 MCHC 31.7 g/dl (32.0-35.9) L 11/22/18 05:50 RDW 15.6 % (11.9-15.9) 11/22/18 05:50 Plt Count 274 K/MM3 (134-434) 11/22/18 05:50 MPV 9.8 fl (7.5-11.1) 11/22/18 05:50 Sodium 138 mmol/L (136-145) 11/22/18 05:50 Potassium 3.7 mmol/L (3.5-5.1) 11/22/18 05:50 Chloride 104 mmol/L (98-107) 11/22/18 05:50 Carbon Dioxide 21 mmol/L (21-32) 11/22/18 05:50 Anion Gap 13 MMOL/L (8-16) 11/22/18 05:50 BUN 9 mg/dL (7-18) 11/22/18 05:50 Creatinine 1.1 mg/dL (0.55-1.3) 11/22/18 05:50 Creat Clearance w eGFR > 60 (>60) 11/22/18 05:50 Random Glucose 101 mg/dL (74-106) 11/22/18 05:50 Calcium 8.4 mg/dL (8.5-10.1) L 11/22/18 05:50 Total Bilirubin 0.4 mg/dL (0.2-1) 11/22/18 05:50 AST 21 U/L (15-37) 11/22/18 05:50 ALT 25 U/L (13-61) 11/22/18 05:50 Alkaline Phosphatase 147 U/L (45-117) H 11/22/18 05:50 Total Protein 7.7 g/dl (6.4-8.2) 11/22/18 05:50 Albumin 3.5 g/dl (3.4-5.0) 11/22/18 05:50 RPR Titer Nonreactive (NONREACTIVE) 11/22/18 05:50 lab noted - Treatment Hospital Course: Detox Protocol Followed, Detoxed Safely, Responded well, Discharged Condition Good, Rehab Referral Accepted Patient has Accepted a Rehab Referral to: [facility] services - Medication Discharge Medications: Ambulatory Orders Acetaminophen [Tylenol .Extra-Strength -] 1,000 mg PO Q6H PRN 11/21/18 - Diagnosis (1) Alcohol dependence with withdrawal Status: Acute Qualifiers: Complication of substance-induced condition: uncomplicated Qualified Code(s ): F10.230 - Alcohol dependence with withdrawal, uncomplicated (2) Morbid obesity with BMI of 45.0-49.9, adult Status: Chronic (3) Nicotine dependence Status: Acute Qualifiers: Nicotine product type: cigarettes Substance use status: in withdrawal Qualified Code(s): F17.213 - Nicotine dependence, cigarettes, with withdrawal - AMA Did Patient Leave Against Medical Advice: No
== END 2018-11-25 09:56 | disposition home or self-care (01) | DRG 774 ==
LOC: YASAS 10:45 → Y3N 14:02
PROC: HZ2ZZZZ Detoxification Services for Substance Abuse Treatment (ICD-10-PCS; principal; 2018-11-21)
DX: F10.230 Alcohol dependence with withdrawal, uncomplicated (principal); F14.20 Cocaine dependence, uncomplicated; F17.210 Nicotine dependence, cigarettes, uncomplicated; D72.829 Elevated white blood cell count, unspecified; E66.01 Morbid (severe) obesity due to excess calories; Z68.42 Body mass index [BMI] 45.0-49.9, adult
CPT/HCPCS: 36415; 80053; 85027; 86593

== ENCOUNTER 2019-08-07 09:36 | Inpatient (IN) | payer OTHER ==
[2019-08-07 10:27] VITALS: BMI 47.5
--- NOTE | 2019-08-07 10:55 | HP ---
CIWA Score Nausea/Vomitin-Int. Nausea w/Dry Heave Muscle Tremors: 4-Moderate,w/Arms Extend Anxiety: 4-Mod. Anxious/Guarded Agitation: 3 Paroxysmal Sweats: 3 Orientation: 0-Oriented Tacttile Disturbances: 1-Very Mild Itch/Numbness Auditory Disturbances: 0-None Visual Disturbances: 0-None Headache: 4-Moderately Severe (appropiate for admission for detox he was here yesterday and there was no bed so he drank nothing the whole day yesterday and is now very tremulous) CIWA-Ar Total Score: 23 - Admission Criteria [facility]ASAS Guidelines: Admission for Medically Managed Detox: Requires at least one of the followin. CIWA greater than 12 2. Seizures within the past 24 hours 3. Delirium tremens within the past 24 hours 4. Hallucinations within the past 24 hours 5. Acute intervention needed for co occurring medical disorder 6. Acute intervention needed for co occurring psychiatric disorder 7. Severe withdrawal that cannot be handled at a lower level of care (continued vomiting, continued diarrhea, abnormal vital signs) requiring intravenous medication and/or fluids 8. Admission ROS [facility] Chief Complaint: " I just had a birthday and I feel my health deteriorating and I do want to be sober" Allergies/Adverse Reactions: Allergies Allergy/AdvReac Type Severity Reaction Status Date / Time No Known Allergies Allergy Verified 08/07/19 10:20 History of Present Illness: 59 year old black male with alcohol dependence with withdrawals that are moderate to severe since he hasn't drank in more than one day. Though his breathalyzer is zero, he was here yesterday but not admitted because there were no detox beds. Patient is drinking 1/5 vodka or gin daily, last drank 2 days ago. Patient uses 1-2 times per week and 1 gm at a time. He just started smoking once again: 1 ppd per day since March 2019. Smoked total 25 pack-years. PMH: Right knee arthritis PSH: Right knee surgery torn quadriceps 2017 Psych Hx: None Homeless but [facility] Exam Limitations: No Limitations - Ebola screening Have you traveled outside of the country in the last 21 days: No Have you had contact with anyone from an Ebola affected area: No Have you been sick,other than usual withdrawal symptoms: No Do you have a fever: No - Review of Systems Constitutional: Chills EENT: reports: Blurred Vision Respiratory: reports: No Symptoms reported Cardiac: reports: No Symptoms Reported GI: reports: No Symptoms Reported, Constipated, Nausea : reports: No Symptoms Reported Musculoskeletal: reports: Back Pain, Joint Pain (right knee), Muscle Pain Integumentary: reports: No Symptoms Reported Neuro: reports: Headache Endocrine: reports: No Symptoms Reported Hematology: reports: No Symptoms Reported Psychiatric: reports: No Sypmtoms Reported Other Systems: Reviewed and Negative Patient History - Patient Medical History Hx Anemia: No Hx Asthma: No Hx Chronic Obstructive Pulmonary Disease (COPD): No Hx Cancer: No Hx Cardiac Disorders: No Hx Congestive Heart Failure: No Hx Hypertension: No Hx Hypercholesterolemia: No Hx Pacemaker: No HX Cerebrovascular Accident: No Hx Seizures: No Hx Dementia: No Hx Diabetes: No Hx Gastrointestinal Disorders: No Hx Liver Disease: No Hx Genitourinary Disorders: No Hx Sexually Transmitted Disorders: No Hx Renal Disease (ESRD): No Hx Thyroid Disease: No Hx Human Immunodeficiency Virus (HIV): No Hx Hepatitis C: No Hx Depression: No Hx Suicide Attempt: No Hx Bipolar Disorder: No Hx Schizophrenia: No - Patient Surgical History Past Surgical History: No Hx Neurologic Surgery: No Hx Cataract Extraction: No Hx Cardiac Surgery: No Hx Lung Surgery: No Hx Breast Surgery: No Hx Breast Biopsy: No Hx Abdominal Surgery: No Hx Appendectomy: No Hx Cholecystectomy: No Hx Genitourinary Surgery: No Hx Section: No Hx Orthopedic Surgery: Yes (right knee - arthroscopy march 2017) Anesthesia Reaction: No - PPD History Previous Implant?: Yes Documented Results: Negative w/proof Implanted On Prior R Admission?: Yes Date: 11/23/18 Results: 0 mm PPD to be Administered?: No - Smoking Cessation Smoking history: Current some day smoker Have you smoked in the past 12 months: Yes Aproximately how many cigarettes per day: 20 Cigars Per Day: 0 Hx Chewing Tobacco Use: No Initiated information on smoking cessation: Yes 'Breaking Loose' booklet given: 08/07/19 - Substance & Tx. History Hx Alcohol Use: Yes (1/5 of hard liquor daily) Hx Substance Use: Yes Substance Use Type: Alcohol, Cocaine - Substances abused Alcohol Substance route: Oral Frequency: Daily Amount used: 1 quart vodka/day Age of first use: 10 Date of last use: 08/06/19 Cocaine Substance route: Smoking Frequency: 1-2 times per week Amount used: 1 gram Age of first use: 24 Date of last use: 08/05/19 Admission Physical Exam S - Vital Signs Vital Signs: Vital Signs - 24 hr 08/07/19 10:24 Temperature 97.2 F L Pulse Rate 75 Respiratory 18 Rate Blood Pressure 114/78 - Physical General Appearance: Yes: Moderate Distress, Irritable, Anxious HEENTM: Yes: EOMI, Hearing grossly Normal, Normocephalic, Normal Voice, JOE, Pharynx Normal, Tm's normal Respiratory: Yes: Chest Non-Tender, Lungs Clear, Normal Breath Sounds, No Respiratory Distress, No Accessory Muscle Use Neck: Yes: No masses,lesions,Nodules, Trachea in good position Breast: Yes: Within Normal Limits Cardiology: Yes: Regular Rhythm, Regular Rate, S1, S2 Abdominal: Yes: Normal Bowel Sounds, Non Tender, Soft, Protuberent Cleared for Admission [facility] - Detox or Rehab [facility] Level of Care: Medically Managed Detox Regimen/Protocol: Librium Claeared for Rehab Admission: No Screened but not Admitted - Documentation of Visit Screened but not Admitted: No Breathalyzer - Breathalyzer Breathalyzer: 0 (last drank 2 days ago) Vital Signs - Vital Signs Vital signs refused: No Temperature: 97.2 F Temperature source: Oral Pulse Rate: 75 Respiratory Rate: 18 Blood Pressure: 114/78 BP Location: Left Arm Blood Pressure position: Sitting - Height Height: 5 ft 9.5 in - Weight Weight: 327 lb Weight measurement method: Standing scale - BMI Body Mass Index (BMI): 47.5 - Bowel Function Bowel Movement: No Urine Drug Screen - Test Device Lot number: [id number] Expiration date: 04/17/21 - Control Is test valid?: Yes - Results Drug screen NEGATIVE: No Urine drug screen results: STEVIE-Cocaine Inpatient Rehab Admission - Rehab Decision to Admit Inpatient rehab admission?: No
[2019-08-07] MEDS ORDERED: BISMUTH SUBSALICYLATE 524 MG/30 ML UD PO PRN (11:04)
[2019-08-07] MEDS ORDERED: chlordiazePOXIDE HCL 10 MG CAPSULE PO PRN (11:04)
[2019-08-07] MEDS ORDERED: ACETAMINOPHEN 325 MG TABLET (FP) PO PRN (11:04)
[2019-08-07] MEDS ORDERED: MENTHOL/PHENOL 1 EACH UD MM PRN (11:04)
[2019-08-07] MEDS ORDERED: hydrOXYzine PAMOATE 25 MG CAPSULE (FP) PO PRN (11:04)
[2019-08-07] MEDS ORDERED: MAG HYDROX/AL HYDROX/SIMETH 30 ML UNIT-DOSE CUP PO PRN (11:04)
[2019-08-07] MEDS ORDERED: MAGNESIUM CITRATE 300 ML BOTTLE PO PRN (11:04)
[2019-08-07] MEDS ORDERED: MELATONIN 5 MG TABLETS PO PRN (11:04)
[2019-08-07] MEDS ORDERED: MAGNESIUM HYDROX 2400MG/30ML ORAL SUSPENSION 30 ML CUP PO PRN (11:04)
[2019-08-07] MEDS ORDERED: IBUPROFEN 400 MG TABLET (FP) PO PRN (11:04)
[2019-08-07] MEDS ORDERED: METHOCARBAMOL 500 MG TABLET PO PRN (11:04)
[2019-08-07] MEDS: NICOTINE 7 MG/24 HOURS TOPICAL PATCH TD SCH (12:08)
[2019-08-07] MEDS: VITAMINS A AND D TOPICAL OINTMENT 60 GM TUBE TP SCH ×2 (13:05→17:42)
[2019-08-07] MEDS: chlordiazePOXIDE HCL 25 MG CAPSULE PO SCH ×2 (13:05→22:16)
[2019-08-07 16:05] LABS: ALBUMIN 3.4 g/dl (3.4-5.0); BILIRUBIN,TOTAL 0.8 mg/dL (0.2-1); BLOOD UREA NITROGEN 15.1 mg/dL (7-18); CALCIUM 8.8 mg/dL (8.5-10.1); CREATININE 1.1 mg/dL (0.55-1.3); POTASSIUM 3.9 mmol/L (3.5-5.1); TOT PROT 7.6 g/dl (6.4-8.2)
[2019-08-07 16:37] LABS: HEMATOCRIT 46.1 % (35.4-49); HEMOGLOBIN 15.3 GM/dL (11.7-16.9); MCH 32.9 pg (25.7-33.7); MCHC 33.2 g/dl (32.0-35.9); MEAN CELL VOLUME 99.2 fl (80-96); MEAN PLT VOLUME 9.4 fl (7.5-11.1); PLATELET COUNT 201 K/MM3 (134-434); RBC 4.65 M/mm3 (4.00-5.60); RDW 16.8 % (11.9-15.9); WHITE BLOOD COUNT 9.8 K/mm3 (4.0-10.0)
[2019-08-07] MEDS: THIAMINE HCL 100 MG TABLET (FP) PO SCH (22:15)
[2019-08-07] MEDS: ACETAMINOPHEN 325 MG TABLET (FP) PO PRN (22:17)
[2019-08-08] MEDS: VITAMINS A AND D TOPICAL OINTMENT 60 GM TUBE TP SCH ×4 (01:39→18:21)
[2019-08-08] MEDS: chlordiazePOXIDE HCL 25 MG CAPSULE PO SCH ×2 (07:05→12:44)
[2019-08-08] MEDS: PRENATAL VITAMINS W/ FOLIC ACID TABLET (FP) PO SCH (10:13)
[2019-08-08] MEDS: NICOTINE 7 MG/24 HOURS TOPICAL PATCH TD SCH (10:14)
[2019-08-08] MEDS: ACETAMINOPHEN 325 MG TABLET (FP) PO PRN ×2 (12:45→22:06)
--- NOTE | 2019-08-08 13:51 | PN ---
[facility] CIWA - CIWA Score Nausea/Vomitin-No Nausea/No Vomiting Muscle Tremors: 3 Anxiety: 4-Mod. Anxious/Guarded Agitation: 3 Paroxysmal Sweats: No Perspiration Orientation: 0-Oriented Tacttile Disturbances: 0-None Auditory Disturbances: 0-None Visual Disturbances: 2-Mild Sensitivity Headache: 0-None Present CIWA-Ar Total Score: 12 S Progress Note (SOAP) Subjective: Fatigue, Anxious, Tremors. Objective: PATIENT A & O X 3, OBSERVED AMBULATING ON DETOX UNIT UNASSISTED. IN NO ACUTE DISTRESS. 08/08/19 13:48 Vital Signs Temperature 98.5 F 08/08/19 13:32 Pulse Rate 83 08/08/19 13:32 Respiratory Rate 18 08/08/19 13:32 Blood Pressure 138/83 08/08/19 13:32 O2 Sat by Pulse Oximetry (%) Laboratory Tests 08/07/19 08/07/19 08/07/19 11:30 11:30 11:30 WBC 9.8 RBC 4.65 Hgb 15.3 Hct 46.1 MCV 99.2 H MCH 32.9 MCHC 33.2 RDW 16.8 H Plt Count 201 D MPV 9.4 Sodium 141 Potassium 3.9 Chloride 108 H Carbon Dioxide 27 Anion Gap 6 L BUN 15.1 Creatinine 1.1 Est GFR (CKD-EPI)AfAm 85.31 Est GFR (CKD-EPI)NonAf 73.61 Random Glucose 100 Calcium 8.8 Total Bilirubin 0.8 AST 44 H ALT 62 H Alkaline Phosphatase 117 Total Protein 7.6 Albumin 3.4 RPR Titer Nonreactive HIV 1&2 Antibody Screen HIV P24 Antigen 08/08/19 05:40 WBC RBC Hgb Hct MCV MCH MCHC RDW Plt Count MPV Sodium Potassium Chloride Carbon Dioxide Anion Gap BUN Creatinine Est GFR (CKD-EPI)AfAm Est GFR (CKD-EPI)NonAf Random Glucose Calcium Total Bilirubin AST ALT Alkaline Phosphatase Total Protein Albumin RPR Titer HIV 1&2 Antibody Screen Negative HIV P24 Antigen Negative LABS NOTED. PATIENT HAS HAD ELEVATED AST LEVELS ON PREVIOUS ADMISSIONS. 08/08/19 13:48 Assessment: 08/08/19 13:48 WITHDRAWAL SYMPTOMS. ELEVATED AST LEVEL. ELEVATED ALT LEVEL. 08/08/19 13:49 Plan: CONTINUE DETOX. INCREASE DAILY PO WATER INTAKE. PATIENT REPROTS THAT HE FEELS THAT CURRENT LIBRIUM DETOX MEDICATION PROTOCOL IS CAUSING HIM TO FEEL SOMEWHAT LETHARGIC. WITH PATIENT'S CONSENT, LIBRIUM DETOX MEDICATION PROTOCOL MODIFIED TO SLIGHTLY LOWER DOSAGING AND SCHEDULE.
[2019-08-08] MEDS: chlordiazePOXIDE 5 MG CAPSULE PO SCH (21:06)
[2019-08-08] MEDS: THIAMINE HCL 100 MG TABLET (FP) PO SCH (22:05)
[2019-08-09] MEDS: VITAMINS A AND D TOPICAL OINTMENT 60 GM TUBE TP SCH ×5 (01:11→23:57)
[2019-08-09] MEDS ORDERED: chlordiazePOXIDE 5 MG CAPSULE PO SCH (05:00)
[2019-08-09] MEDS: chlordiazePOXIDE 5 MG CAPSULE PO SCH ×3 (06:40→22:02)
[2019-08-09] MEDS: NICOTINE 7 MG/24 HOURS TOPICAL PATCH TD SCH (10:13)
[2019-08-09] MEDS: PRENATAL VITAMINS W/ FOLIC ACID TABLET (FP) PO SCH (10:13)
--- NOTE | 2019-08-09 12:37 | PN ---
[facility] CIWA - CIWA Score Nausea/Vomitin-No Nausea/No Vomiting Muscle Tremors: 2 Anxiety: 3 Agitation: 2 Paroxysmal Sweats: 1-Minimal Palms Moist Orientation: 0-Oriented Tacttile Disturbances: 1-Very Mild Itch/Numbness Auditory Disturbances: 0-None Visual Disturbances: 0-None Headache: 0-None Present CIWA-Ar Total Score: 9 BHS Progress Note (SOAP) Subjective: doing well wit librium detox regimen c/o right knee arthritis pain history of surgical repaired at [facility] ate breakfast resting on bed patient has orthopedic appointment upon discharge from detox Objective: 08/09/19 12:37 Vital Signs Temperature 98.1 F 08/09/19 09:09 Pulse Rate 83 08/09/19 09:09 Respiratory Rate 18 08/09/19 09:09 Blood Pressure 129/85 08/09/19 09:09 O2 Sat by Pulse Oximetry (%) Laboratory Last Values WBC 9.8 K/mm3 (4.0-10.0) 08/07/19 11:30 RBC 4.65 M/mm3 (4.00-5.60) 08/07/19 11:30 Hgb 15.3 GM/dL (11.7-16.9) 08/07/19 11:30 Hct 46.1 % (35.4-49) 08/07/19 11:30 MCV 99.2 fl (80-96) H 08/07/19 11:30 MCH 32.9 pg (25.7-33.7) 08/07/19 11:30 MCHC 33.2 g/dl (32.0-35.9) 08/07/19 11:30 RDW 16.8 % (11.9-15.9) H 08/07/19 11:30 Plt Count 201 K/MM3 (134-434) D 08/07/19 11:30 MPV 9.4 fl (7.5-11.1) 08/07/19 11:30 Sodium 141 mmol/L (136-145) 08/07/19 11:30 Potassium 3.9 mmol/L (3.5-5.1) 08/07/19 11:30 Chloride 108 mmol/L (98-107) H 08/07/19 11:30 Carbon Dioxide 27 mmol/L (21-32) 08/07/19 11:30 Anion Gap 6 MMOL/L (8-16) L 08/07/19 11:30 BUN 15.1 mg/dL (7-18) 08/07/19 11:30 Creatinine 1.1 mg/dL (0.55-1.3) 08/07/19 11:30 Est GFR (CKD-EPI)AfAm 85.31 08/07/19 11:30 Est GFR (CKD-EPI)NonAf 73.61 08/07/19 11:30 Random Glucose 100 mg/dL (74-106) 08/07/19 11:30 Calcium 8.8 mg/dL (8.5-10.1) 08/07/19 11:30 Total Bilirubin 0.8 mg/dL (0.2-1) 08/07/19 11:30 AST 44 U/L (15-37) H 08/07/19 11:30 ALT 62 U/L (13-61) H 08/07/19 11:30 Alkaline Phosphatase 117 U/L (45-117) 08/07/19 11:30 Total Protein 7.6 g/dl (6.4-8.2) 08/07/19 11:30 Albumin 3.4 g/dl (3.4-5.0) 08/07/19 11:30 RPR Titer Nonreactive (NONREACTIVE) 08/07/19 11:30 HIV 1&2 Antibody Screen Negative 08/08/19 05:40 HIV P24 Antigen Negative 08/08/19 05:40 lab noted Assessment: 08/09/19 12:37 alcohol withdrawal sx Plan: continue librium detox regimen
[2019-08-09] MEDS: ACETAMINOPHEN 325 MG TABLET (FP) PO PRN (22:02)
[2019-08-09] MEDS: THIAMINE HCL 100 MG TABLET (FP) PO SCH (22:04)
[2019-08-10] MEDS ORDERED: chlordiazePOXIDE HCL 10 MG CAPSULE PO PRN
[2019-08-10] MEDS: chlordiazePOXIDE HCL 10 MG CAPSULE PO SCH ×2 (05:54→13:54)
[2019-08-10] MEDS: VITAMINS A AND D TOPICAL OINTMENT 60 GM TUBE TP SCH ×3 (06:55→17:28)
[2019-08-10] MEDS: NICOTINE 7 MG/24 HOURS TOPICAL PATCH TD SCH (11:16)
[2019-08-10] MEDS: PRENATAL VITAMINS W/ FOLIC ACID TABLET (FP) PO SCH (11:17)
--- NOTE | 2019-08-10 13:28 | PN ---
[facility] CIWA - CIWA Score Nausea/Vomitin-No Nausea/No Vomiting Muscle Tremors: 2 Anxiety: 2 Agitation: 2 Paroxysmal Sweats: No Perspiration Orientation: 0-Oriented Tacttile Disturbances: 0-None Auditory Disturbances: 0-None Visual Disturbances: 0-None Headache: 0-None Present CIWA-Ar Total Score: 6 S Progress Note (SOAP) Subjective: doing well with librium detox regimen sleep better at night well rested Objective: 08/10/19 13:28 Vital Signs Temperature 97.1 F L 08/10/19 13:27 Pulse Rate 89 08/10/19 13:27 Respiratory Rate 18 08/10/19 13:27 Blood Pressure 151/89 08/10/19 13:27 O2 Sat by Pulse Oximetry (%) Laboratory Last Values WBC 9.8 K/mm3 (4.0-10.0) 08/07/19 11:30 RBC 4.65 M/mm3 (4.00-5.60) 08/07/19 11:30 Hgb 15.3 GM/dL (11.7-16.9) 08/07/19 11:30 Hct 46.1 % (35.4-49) 08/07/19 11:30 MCV 99.2 fl (80-96) H 08/07/19 11:30 MCH 32.9 pg (25.7-33.7) 08/07/19 11:30 MCHC 33.2 g/dl (32.0-35.9) 08/07/19 11:30 RDW 16.8 % (11.9-15.9) H 08/07/19 11:30 Plt Count 201 K/MM3 (134-434) D 08/07/19 11:30 MPV 9.4 fl (7.5-11.1) 08/07/19 11:30 Sodium 141 mmol/L (136-145) 08/07/19 11:30 Potassium 3.9 mmol/L (3.5-5.1) 08/07/19 11:30 Chloride 108 mmol/L (98-107) H 08/07/19 11:30 Carbon Dioxide 27 mmol/L (21-32) 08/07/19 11:30 Anion Gap 6 MMOL/L (8-16) L 08/07/19 11:30 BUN 15.1 mg/dL (7-18) 08/07/19 11:30 Creatinine 1.1 mg/dL (0.55-1.3) 08/07/19 11:30 Est GFR (CKD-EPI)AfAm 85.31 08/07/19 11:30 Est GFR (CKD-EPI)NonAf 73.61 08/07/19 11:30 Random Glucose 100 mg/dL (74-106) 08/07/19 11:30 Calcium 8.8 mg/dL (8.5-10.1) 08/07/19 11:30 Total Bilirubin 0.8 mg/dL (0.2-1) 08/07/19 11:30 AST 44 U/L (15-37) H 08/07/19 11:30 ALT 62 U/L (13-61) H 08/07/19 11:30 Alkaline Phosphatase 117 U/L (45-117) 08/07/19 11:30 Total Protein 7.6 g/dl (6.4-8.2) 08/07/19 11:30 Albumin 3.4 g/dl (3.4-5.0) 08/07/19 11:30 RPR Titer Nonreactive (NONREACTIVE) 08/07/19 11:30 HIV 1&2 Antibody Screen Negative 08/08/19 05:40 HIV P24 Antigen Negative 08/08/19 05:40 lab noted Assessment: 08/10/19 13:30 alcohol withdrawal sx Plan: continue librium detox regimen
[2019-08-10] MEDS ORDERED: cloNIDine HCL 0.1 MG TABLET PO PRN (13:29)
--- NOTE | 2019-08-10 15:11 | DS ---
[facility] Detox Discharge Summary Admission Date: 08/07/19 Discharge Date: 08/10/19 - History Present History: Alcohol Dependence Additional Comments: patient determined to maintain sober report feeling better today case discussed with counselor that [facility] suitable for patient current situation patient is alert oriented x 3 speech clearly coherently ambulating steady gait cardiac S1S2 regular rate rhythm extremities full range of motion - Physical Exam Results Vital Signs: Vital Signs Temperature 97.1 F L 08/10/19 13:27 Pulse Rate 89 08/10/19 13:27 Respiratory Rate 18 08/10/19 13:27 Blood Pressure 151/89 08/10/19 13:27 O2 Sat by Pulse Oximetry (%) Pertinent Admission Physical Exam Findings: alcohol withdrawal sx Laboratory Last Values WBC 9.8 K/mm3 (4.0-10.0) 08/07/19 11:30 RBC 4.65 M/mm3 (4.00-5.60) 08/07/19 11:30 Hgb 15.3 GM/dL (11.7-16.9) 08/07/19 11:30 Hct 46.1 % (35.4-49) 08/07/19 11:30 MCV 99.2 fl (80-96) H 08/07/19 11:30 MCH 32.9 pg (25.7-33.7) 08/07/19 11:30 MCHC 33.2 g/dl (32.0-35.9) 08/07/19 11:30 RDW 16.8 % (11.9-15.9) H 08/07/19 11:30 Plt Count 201 K/MM3 (134-434) D 08/07/19 11:30 MPV 9.4 fl (7.5-11.1) 08/07/19 11:30 Sodium 141 mmol/L (136-145) 08/07/19 11:30 Potassium 3.9 mmol/L (3.5-5.1) 08/07/19 11:30 Chloride 108 mmol/L (98-107) H 08/07/19 11:30 Carbon Dioxide 27 mmol/L (21-32) 08/07/19 11:30 Anion Gap 6 MMOL/L (8-16) L 08/07/19 11:30 BUN 15.1 mg/dL (7-18) 08/07/19 11:30 Creatinine 1.1 mg/dL (0.55-1.3) 08/07/19 11:30 Est GFR (CKD-EPI)AfAm 85.31 08/07/19 11:30 Est GFR (CKD-EPI)NonAf 73.61 08/07/19 11:30 Random Glucose 100 mg/dL (74-106) 08/07/19 11:30 Calcium 8.8 mg/dL (8.5-10.1) 08/07/19 11:30 Total Bilirubin 0.8 mg/dL (0.2-1) 08/07/19 11:30 AST 44 U/L (15-37) H 08/07/19 11:30 ALT 62 U/L (13-61) H 08/07/19 11:30 Alkaline Phosphatase 117 U/L (45-117) 08/07/19 11:30 Total Protein 7.6 g/dl (6.4-8.2) 08/07/19 11:30 Albumin 3.4 g/dl (3.4-5.0) 08/07/19 11:30 RPR Titer Nonreactive (NONREACTIVE) 08/07/19 11:30 HIV 1&2 Antibody Screen Negative 08/08/19 05:40 HIV P24 Antigen Negative 08/08/19 05:40 lab noted - Treatment Hospital Course: Detox Protocol Followed, Detoxed Safely, Responded well, Discharged Condition Good, Rehab Referral Accepted Patient has Accepted a Rehab Referral to: [facility] - Medication Discharge Medications: Ambulatory Orders Acetaminophen [Tylenol .Extra-Strength -] 1,000 mg PO BID 11/21/18 - Diagnosis (1) Alcohol dependence with withdrawal Current Visit: Yes Status: Acute Qualifiers: Complication of substance-induced condition: uncomplicated Qualified Code(s ): F10.230 - Alcohol dependence with withdrawal, uncomplicated (2) Nicotine dependence Current Visit: Yes Status: Acute Qualifiers: Nicotine product type: cigarettes Substance use status: in withdrawal Qualified Code(s): F17.213 - Nicotine dependence, cigarettes, with withdrawal (3) Morbid obesity with BMI of 45.0-49.9, adult Current Visit: Yes Status: Chronic - AMA Did Patient Leave Against Medical Advice: No CIWA Score - CIWA Score Nausea/Vomitin-No Nausea/No Vomiting Muscle Tremors: 2 Anxiety: 1-Mildly Anxious Agitation: 1-Slight > Activity Paroxysmal Sweats: No Perspiration Orientation: 0-Oriented Tacttile Disturbances: 0-None Auditory Disturbances: 0-None Visual Disturbances: 0-None Headache: 0-None Present CIWA-Ar Total Score: 4
[2019-08-10 17:21] VITALS: BP 132/78; PULSE 83; TEMP 98.8
[2019-08-11] MEDS ORDERED: chlordiazePOXIDE HCL 10 MG CAPSULE PO ONE (05:00)
== END 2019-08-10 19:10 | disposition other institution (70) | DRG 775 ==
LOC: YASAS 09:36 → Y3N 11:13
PROVIDERS: ADMIT Surgery; ATTEND Surgery
PROC: HZ2ZZZZ Detoxification Services for Substance Abuse Treatment (ICD-10-PCS; principal; 2019-08-07)
DX: F10.230 Alcohol dependence with withdrawal, uncomplicated (principal); F17.213 Nicotine dependence, cigarettes, with withdrawal; R74.0 Nonspecific elevation of levels of transaminase and lactic acid dehydrogenase [LDH]; E66.01 Morbid (severe) obesity due to excess calories; Z68.42 Body mass index [BMI] 45.0-49.9, adult
CPT/HCPCS: 36415; 80053; 85027; 86593; 87389

== ENCOUNTER 2019-08-10 20:24 | Inpatient (IN) | payer OTHER ==
--- NOTE | 2019-08-10 15:18 | HP ---
[facility] Rehab Assess/Revision - Admission History Admitted to Rehab from: [facility] Date of Admission to Rehab: 08/10/19 - Findings Detox History & Physical reviewed: Yes Concur with findings: Yes Comments/Additional Findings: transferred from detox to rehab admission as per protocol Inpatient Rehab Admission - Rehab Decision to Admit Inpatient rehab admission?: Yes - Initial Determination Are CD services needed?: Yes Free of communicable disease: Yes Not in need of hospitalization: Yes - Rehab Admission Criteria Previous failed treatment: Yes Poor recovery environment: Yes Comorbidities: Yes Lacks judgement: Yes Patient is meeting Inpatient Rehab admission criteria:: Yes
[~2019-08-10 20:24] MED LIST: IBUPROFEN 400 MG TABLET (FP) PO PRN; LOPERAMIDE HCL 2 MG CAPSULE PO PRN; MAG HYDROX/AL HYDROX/SIMETH 30 ML UNIT-DOSE CUP PO PRN; MAGNESIUM CITRATE 300 ML BOTTLE PO PRN; MAGNESIUM HYDROX 2400MG/30ML ORAL SUSPENSION 30 ML CUP PO PRN; MENTHOL/PHENOL 1 EACH UD MM PRN; NICOTINE POLACRILEX 2 MG GUM BC PRN; P-EPHED 60MG/TRIPROLIDI 2.5MG TABLET PO PRN; guaiFENesin 200 MG/10 ML 10 ML UNIT-DOSE CUPS PO PRN
[2019-08-10] MEDS: THIAMINE HCL 100 MG TABLET (FP) PO SCH (21:42)
[2019-08-10] MEDS: ACETAMINOPHEN 325 MG TABLET (FP) PO PRN (21:43)
[2019-08-10] MEDS ORDERED: MELATONIN 5 MG TABLETS PO PRN (22:00)
[2019-08-10] MEDS: VITAMINS A AND D TOPICAL OINTMENT 60 GM TUBE TP SCH (23:15)
[2019-08-11] MEDS: VITAMINS A AND D TOPICAL OINTMENT 60 GM TUBE TP SCH ×3 (06:30→18:10)
[2019-08-11] MEDS: NICOTINE 7 MG/24 HOURS TOPICAL PATCH TD SCH (10:27)
[2019-08-11] MEDS: PRENATAL VITAMINS W/ FOLIC ACID TABLET (FP) PO SCH (10:28)
[2019-08-11] MEDS: ACETAMINOPHEN 325 MG TABLET (FP) PO PRN (15:01)
[2019-08-11] MEDS: THIAMINE HCL 100 MG TABLET (FP) PO SCH (21:54)
[2019-08-12] MEDS: VITAMINS A AND D TOPICAL OINTMENT 60 GM TUBE TP SCH ×4 (01:40→18:49)
[2019-08-12] MEDS: PRENATAL VITAMINS W/ FOLIC ACID TABLET (FP) PO SCH (10:28)
[2019-08-12] MEDS: NICOTINE 7 MG/24 HOURS TOPICAL PATCH TD SCH (10:28)
[2019-08-12] MEDS: ACETAMINOPHEN 325 MG TABLET (FP) PO PRN (11:00)
--- NOTE | 2019-08-12 15:18 | PN ---
S Progress Note (SOAP) Subjective: Patient c/o pain in the right knee, reports surgery in that knee (type and time unknown). Objective: P/E: General: no apparent distress. morbidly obese MSK: full weight bearing, gait steady, limited ROM r/t pain extremities: no edema noted, 08/12/19 15:16 Assessment: chronic knee pain, exacerbated by weight 08/12/19 15:17 Plan: Increased tylenol to 1000mg QID, prn.
[2019-08-12] MEDS: THIAMINE HCL 100 MG TABLET (FP) PO SCH (21:53)
[2019-08-13] MEDS: VITAMINS A AND D TOPICAL OINTMENT 60 GM TUBE TP SCH ×5 (01:32→23:39)
[2019-08-13] MEDS: NICOTINE 7 MG/24 HOURS TOPICAL PATCH TD SCH (10:17)
[2019-08-13] MEDS: PRENATAL VITAMINS W/ FOLIC ACID TABLET (FP) PO SCH (10:17)
[2019-08-13] MEDS: ACETAMINOPHEN 500 MG TABLET (FP) PO PRN ×2 (14:14→21:19)
[2019-08-13] MEDS ORDERED: PT OWN MED DRAWER 7, Y5N ONE (14:14)
[2019-08-13] MEDS: THIAMINE HCL 100 MG TABLET (FP) PO SCH (21:18)
[2019-08-14] MEDS: VITAMINS A AND D TOPICAL OINTMENT 60 GM TUBE TP SCH (06:27)
[2019-08-14 06:39] VITALS: BP 131/82; PULSE 79; TEMP 98.1
[2019-08-14] MEDS: ACETAMINOPHEN 500 MG TABLET (FP) PO PRN (07:44)
--- NOTE | 2019-08-14 09:20 | DS ---
[facility] Rehab Discharge Summary - [facility] Rehab Discharge Summary Admission Date: 08/10/19 Discharge Date: 08/14/19 - History Present History: Alcohol dependence - Discharge Physical Exam Vital Signs: Vital Signs Temperature 98.1 F 08/14/19 06:39 Pulse Rate 79 08/14/19 06:39 Respiratory Rate 18 08/14/19 06:39 Blood Pressure 131/82 08/14/19 06:39 O2 Sat by Pulse Oximetry (%) Pertinent Admission Physical Exam Findings: ROS: denies SI/Hi, etoh cravings, chest pain and sob PE alert and oriented x 3 skin warm and dry +perrla, eoms intact car s1s2 resp ctabl ext no tremors, amb ad xu - Treatment Discharge Condition: Discharge condition good Hospital Course: Patient completed detox 08/10/19 and admitted to [facility] rehab on same day. Patient attended group meetings and states he accomplished all rehab goals. Patient is medically stable and denies SI/HI. Requested early discharge from rehab and will follow up with [facility] in [place] for aftercare and group meetings. Patient encouraged to continue group meetings to prevent relapse and to follow up with PCP within one week of discharge. Vital Signs Temperature 98.1 F 08/14/19 06:39 Pulse Rate 79 08/14/19 06:39 Respiratory Rate 18 08/14/19 06:39 Blood Pressure 131/82 08/14/19 06:39 O2 Sat by Pulse Oximetry (%) A/P ETOH dependence Patient stable for discharge - Medication Discharge Medications: Ambulatory Orders Acetaminophen [Tylenol .Extra-Strength -] 1,000 mg PO BID 11/21/18 - Medication-Assisted Treatment (MAT) Medication-Assisted Treatment (MAT): No - Discharge Instructions Diet, activity, other medical instructions: Diet: regular as tolerated Activity: as tolerated Other medical instructions: follow up with PCP at [facility] in [place], [place] - Follow-up Referral Minutes to complete discharge: 30 - AMA Did Patient Leave Against Medical Advice: No
[2019-08-14] MEDS: NICOTINE 7 MG/24 HOURS TOPICAL PATCH TD SCH (10:17)
[2019-08-14] MEDS: PRENATAL VITAMINS W/ FOLIC ACID TABLET (FP) PO SCH (10:17)
== END 2019-08-14 09:30 | disposition home or self-care (01) | DRG 772 ==
LOC: YASAS 20:24 → Y3W 20:25
PROVIDERS: ADMIT Neuromusculoskeletal Medicine & OMM; ATTEND Neuromusculoskeletal Medicine & OMM
PROC: HZ42ZZZ Group Counseling for Substance Abuse Treatment, Cognitive-Behavioral (ICD-10-PCS; principal; 2019-08-10)
DX: F10.230 Alcohol dependence with withdrawal, uncomplicated (principal); F14.20 Cocaine dependence, uncomplicated; F17.210 Nicotine dependence, cigarettes, uncomplicated; M25.561 Pain in right knee